=== PATIENT | male | born 1955 | race Caucasian/White ===

== ENCOUNTER 2017-09-17 07:28 | Day surgery (SDC) | payer MEDICARE ==
[~2017-09-17] VITALS: Ht 162.6 cm; Wt 92.1 kg
[2017-09-17] VITALS (10 sets, daily range): BP systolic 102–134; BP diastolic 67–89
--- OUTSIDE RECORDS SUMMARY | 2017-09-17 07:31 | XMS REPORT | Continuity of Care Document ---
Author Author [facility] Organization [facility] Address Unknown Phone Unavailable Allergies Active Description Code Type Severity Reaction Onset Reported/Identified Relationship to Patient Clinical Status Yes No Known Drug Allergies [id number] N/A N/A Medications There is no data. Problems There is no data. Procedures There is no data. Results Test Result Range TSH - 09/03/17 16:11 TSH 2.35 mIU/L 0.40-4.50 Encounters ACCT No. Visit Date/Time Discharge Status Pt. Type Provider Facility Loc./Unit Complaint [id number] 03/20/2014 12:06:48 03/20/2014 23:59:59 CLS Outpatient Flavia Tapia [id number] 06/07/2013 10:40:09 06/07/2013 23:59:59 CLS Outpatient Duong Rico [id number] 05/17/2013 12:14:27 05/17/2013 23:59:59 CLS Outpatient Duong Rico [id number] 05/16/2013 12:55:56 05/16/2013 23:59:59 CLS Outpatient Duong Rico [id number] 05/10/2013 11:59:47 05/10/2013 23:59:59 CLS Outpatient Duong Rico [id number] 05/01/2013 12:35:03 05/01/2013 23:59:59 CLS Outpatient Duong Rico [id number] 09/03/2017 15:20:00 09/03/2017 23:59:59 CLS Outpatient YOEL YUSUF LAC CHCTOBIAS LEI [id number] 09/03/2017 15:20:00 Document Registration [id number] 09/08/2017 10:08:00 09/08/2017 23:59:59 CLS Outpatient SONIA VARGAS APRN Via [facility] CARD DIZZINESS [id number] 09/06/2017 10:11:39 Document Registration
[2017-09-17] MEDS ORDERED: NS IV 1000 ML 1,000 ML ONE (07:44)
[2017-09-17] MEDS ORDERED: LIDOCAINE 1% INJ 20 ML 20 ML VIAL ONE (07:44)
[2017-09-17] MEDS ORDERED: methylPREDNISolone 125 MG (Solu-MEDROL) VIAL ONE (07:44)
[2017-09-17] MEDS ORDERED: HEParin (CATH LAB) 2,000 ML IV ONE (07:44)
[2017-09-17] MEDS ORDERED: NS IV 1000 ML 1,000 ML IV SCH ×2 (08:00→10:31)
[2017-09-17 08:12] LABS: HEMOGLOBIN 16.4 G/DL (13.3-17.7); MEAN PLATELET VOLUME 11.2 FL (7.4-10.4); RED BLOOD COUNT 5.24 10^6/uL (4.35-5.85); RED CELL DISTRIBUTION WIDTH 13.8 % (10.0-14.5); WHITE BLOOD COUNT 7.2 10^3/uL (4.3-11.0)
[2017-09-17] MEDS ORDERED: NAPR-1033 PO (08:20)
[2017-09-17] MEDS ORDERED: METO-351 PO (08:20)
[2017-09-17] MEDS ORDERED: ASPI-983 PO (08:20)
[2017-09-17] MEDS ORDERED: CETI10TA17 PO (08:20)
--- NOTE | 2017-09-17 08:23 | Diagnostic Imaging Report ---
INDICATION: Coronary artery disease PA chest obtained at 8:06 a.m. Heart and mediastinal silhouette are normal in appearance. The lungs are clear. There is no pneumothorax or pleural fluid. IMPRESSION: Negative chest. Dictated by: Dictated on workstation # [id number]
[2017-09-17 08:26] LABS: INR 1.1 (0.8-1.4); PROTHROMBIN TIME PATIENT 14.4 SEC (12.2-14.7)
[2017-09-17 08:34] LABS: ALANINE AMINOTRANSFERASE 39 U/L (0-55); ALBUMIN 4.3 GM/DL (3.2-4.5); ALKALINE PHOSPHATASE 75 U/L (40-136); BILIRUBIN,TOTAL 0.7 MG/DL (0.1-1.0); BUN/CREATININE RATIO 12; CALCIUM 9.2 MG/DL (8.5-10.1); CARBON DIOXIDE 21 MMOL/L (21-32); CHLORIDE 112 MMOL/L (98-107); CHOLESTEROL 150 MG/DL (< 200); CREATININE SERUM 1.02 MG/DL (0.60-1.30); GFR ESTIMATED > 60; GLUCOSE 92 MG/DL (70-105); HDL CHOLESTEROL 34 MG/DL (40-60); POTASSIUM 4.7 MMOL/L (3.6-5.0); SODIUM 142 MMOL/L (135-145); TOTAL PROTEIN 6.7 GM/DL (6.4-8.2); TRIGLYCERIDES 205 MG/DL (<150); VLDL CHOLESTEROL 41 MG/DL (5-40)
[2017-09-17] MEDS ORDERED: MIDAZOLAM 5 MG/5 ML (VERSED) VIAL ONE (09:45)
[2017-09-17] MEDS ORDERED: fentaNYL INJECTION 100 MCG/2 ML AMP ONE (09:46)
[2017-09-17] MEDS ORDERED: diphenhydrAMINE 50 MG/ML INJ (BENADRYL) ONE (09:47)
--- NOTE | 2017-09-17 10:08 | Cardiac Procedure Note-CS/ASA ---
Pre-Procedure Note Pre-Op Procedure Note H&P Reviewed The H&P was reviewed, patient examined and no changes noted. Date H&P Reviewed: Sep 17, 2017 Time H&P Reviewed: 10:07 Conscious Sedation Pre-Proced Time Reviewed: :07 ASA Class: 3 Airway Mallampati Classification: (grayling appropriate class) I. II. III, IV Lungs Heart ASA score ASA 1: a normal healthy patient ASA 2: a patient with a mild systemic disease (mid diabetes, controlled hypertension, obesity x ASA 3: a patient with a severe systemic disease that limits activity (angina , COPD, prior Myocardial infarction) ASA 4: a patient with an incapacitating disease that is a constant threat to life (CHF, renal failure) ASA 5: a moribund patient not expected to survive 24 hrs. (ruptured aneurysm) ASA 6: a declared brain patient whose organs are being harvested. For emergent operations, add the letter E after the classification Grade 3 Sedation Plan: Analgesia, Amnesia, Plan communicated to team members, Discussed options with patient/fam, Discussed risks with patient/fam Note The patient is an appropriate candidate to undergo the planned procedure, sedation, and anesthesia. The patient immediately re-assessed prior to indication. MARIE MOSELEY MD Sep 17, 2017 10:07
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
--- NOTE | 2017-09-17 10:35 | Cardiac Cath Report ---
Cardiac Cath Report Physician (s)/Telegraph Operator (s) Physician MARIE MOSELEY MD Pre-Procedure Diagnosis Pre-Procedure Diagnosis: Ventricular tachycardia, chest pain Post-Procedure Note Procedure Start Date: Sep 17, 2017 Name of Procedure: Left heart catheterization Findings/Procedure Note PROCEDURE NOTE: 62 years old gentleman with history of hypertension, recurrent palpitation, had a Holter monitor which showed multiple PVCs and APCs, 11 beats of nonsustained ventricular tachycardia, he was scheduled for left heart catheterization possible PTCA After explaining the procedure to the patient, all pros and cons were explained , all questions were answered. The patient signed the consent and then he was placed on the cardiac catheterization laboratory. Groin was prepped SL fashion local anesthesia was used. Sheath placed in the right femoral artery. [place] right and left catheter were used to access the coronary system. Pigtail was used to access the left ventricular cavity. Left ventriculogram was done At the end of the procedure the sheath was removed. Closure device was used FINDINGS: Hemodynamics LV 106/12, end-diastolic pressure of 12 Aorta 111/69 mean of 89 ANATOMY: Left Main is free of obstructive disease Left Anterior Descending has mild disease nonobstructive disease Left Circumflex is dominant artery with mild disease nonobstructive disease Ramus intermedius is small artery with no significant obstructive disease Right Coronory Artery is small nondominant artery LV Gram is normal in size with normal contractility, estimated ejection fraction 60 percent CONCLUSION: 1. Dominant circumflex artery with mild coronary artery disease nonobstructive disease 2. Normal left ventricular size and systolic function estimated ejection fraction 60 percent DISCUSSION AND RECOMMENDATION: I will arrange for LifeVest evaluation, medical therapy is recommended. Anesthesia Type: Conscious Sedation Estimated blood loss (mL): 10 ml Contrast Amount: 40 ml Total Radiation Dose: 195 mGy Post-Procedure Diagnosis Post-operative diagnosis: Palpitation Nonsustained ventricular tachycardia Hypertension Hyperlipidemia MARIE MOSELEY MD Sep 17, 2017 10:35
[2017-09-17] MEDS ORDERED: PATIENT MAY USE OWN MEDS, ALL PO SCH (10:45)
[2017-09-17] MEDS ORDERED: AMIO200T2 PO (11:15)
[2017-09-17] MEDS ORDERED: AMIODARONE 200 MG (CORDARONE) TAB PO SCH (11:15)
--- NOTE | 2017-09-17 11:16 | Discharge Inst-Post CATH ---
Discharge Inst-CATH Post Cardiac Cath D/C Inst Follow Up/Plan Appointment with Dr Pineda in 2-4 weeks CARDIAC CATH DISCHARGE INSTRUCTIONS *Hold Metformin for 48 hours post heart cath. ACTIVITY * Go Home directly and rest. * Limit activity of the leg (or wrist if it was used) for 7 days including aerobics, swimming, jogging, bicycling, etc. * Restrict stair-climbing for 7 days if possible, if not, climb up with your non -cath leg, then bring together on the same step. * Avoid lifting, pushing, pulling or excessive movement of the affected extremity for 7 days. * Customary sexual activity may be resumed after 2 days-use caution not to use a position that strains or causes pain to the affected extremity. * No driving for 24 hours. * NO SMOKING. * Avoid straining for bowel movements for 7 days. * Gentle walking on level ground is allowed. * Returning to work will depend on the type of procedure and the results. Your doctor will discuss this with you. CALL YOUR DOCTOR FOR ANY OF THE FOLLOWING: *If bleeding from the puncture site occurs- Apply gentle pressure to site with clean cloth and call your doctor or EMS. * If a knot or lump forms under the skin, increases in size, or causes pain. * If bruising appears to be worsening or moving further down your leg instead of disappearing. * Temperature above 101 F. CARE OF YOUR GROIN INCISION; * Bruising or purple discoloration of the skin near the puncture site is common. * You may shower only, no bathtub bathing for 5 days. Be careful to avoid slipping as your leg may feel stiff. * If a closure device was used on your femoral artery, please see the attached guide regarding care of the device and your leg. * REMOVE the dressing from your groin the next day after your procedure in the shower. CARE OF YOUR WRIST INCISION; * Bruising or purple discoloration of the skin near the puncture site is common. * You may shower. * DO NOT submerge wrist. * Remove dressing in 24 hours. MARIE PINEDA MD Sep 17, 2017 11:16
[2017-09-18] MEDS ORDERED: ASPIRIN E.C. 81 MG (ECOTRIN) TAB PO SCH (09:00)
[2017-09-18] MEDS ORDERED: LORATADINE (CLARITIN) 10 MG TAB PO SCH (09:00)
[2017-09-18] MEDS ORDERED: NON-FORMULARY MEDICATION 1 EA EA (Metoprolol Succinate (Toprol Xl) 25 MG) PO SCH (09:00)
[2017-09-18] MEDS ORDERED: NON-FORMULARY MEDICATION 1 EA EA (Cetirizine HCl 10 MG) PO SCH (09:00)
== END 2017-09-17 16:40 | disposition home or self-care (01) ==
LOC: CATH 07:28 → ICU 11:05 → CATH 16:40
PROVIDERS: ATTEND Internal Medicine Cardiovascular Disease
DX: I47.2 Ventricular tachycardia (principal); I10 Essential (primary) hypertension; E78.5 Hyperlipidemia, unspecified; R00.2 Palpitations; Z87.891 Personal history of nicotine dependence; R55 Syncope and collapse; K21.9 Gastro-esophageal reflux disease without esophagitis; Z82.49 Family history of ischemic heart disease and other diseases of the circulatory system
CPT/HCPCS: 36415; 71045; 80053; 80061; 85027; 85610; 85730; 87081; 93458

== ENCOUNTER 2017-10-14 07:34 | Outpatient (RCR) | payer MEDICARE ==
[~2017-10-14 07:34] MED LIST: AMIO200T4 PO; ASPI-983 PO; CETI10TA17 PO; METO-351 PO; NAPR-1033 PO
== END 2017-12-19 | disposition home or self-care (01) ==
LOC: CARD 07:34
PROVIDERS: ATTEND Internal Medicine Cardiovascular Disease
DX: I47.2 Ventricular tachycardia (principal); R55 Syncope and collapse; R42 Dizziness and giddiness; R07.89 Other chest pain; I08.0 Rheumatic disorders of both mitral and aortic valves
CPT/HCPCS: 93306

== ENCOUNTER 2017-11-25 08:03 | Day surgery (SDC) | payer MEDICARE ==
[~2017-11-25] VITALS: Ht 162.6 cm; Wt 92.1 kg
[2017-11-25] MEDS ORDERED: LIDOCAINE 1% INJ 20 ML 20 ML VIAL ONE (08:43)
[2017-11-25 08:53] VITALS: BP 140/79
[2017-11-25] MEDS ORDERED: REGADENOSON 0.4 MG/5 ML SYR (LEXISCAN) IV ONE (09:03)
--- OUTSIDE RECORDS SUMMARY | 2017-11-25 10:26 | XMS REPORT | Continuity of Care Document ---
Author Author [facility] Organization [facility] Address Unknown Phone Unavailable Allergies Active Description Code Type Severity Reaction Onset Reported/Identified Relationship to Patient Clinical Status Yes No Known Drug Allergies [id number] N/A N/A Yes CONTRAST CONTRAST Unknown N/A 09/17/2017 Medications There is no data. Problems Date Dx Coded Attending Type Code Diagnosis Diagnosed By 09/17/2017 SONIA VARGAS APRN Ot R42 DIZZINESS AND GIDDINESS 09/17/2017 MARIE MOSELEY MD Ot E78.5 HYPERLIPIDEMIA, UNSPECIFIED 09/17/2017 MARIE MOSELEY MD Ot I10 ESSENTIAL (PRIMARY) HYPERTENSION 09/17/2017 MARIE MOSELEY MD Ot I47.2 VENTRICULAR TACHYCARDIA 09/17/2017 MARIE MOSELEY MD Ot K21.9 GASTRO-ESOPHAGEAL REFLUX DISEASE WITHOUT 09/17/2017 MARIE MOSELEY MD Ot R00.2 PALPITATIONS 09/17/2017 MARIE MOSELEY MD Ot R55 SYNCOPE AND COLLAPSE 09/17/2017 MARIE MOSELEY MD Ot Z82.49 FAMILY HX OF ISCHEM HEART DIS AND OTH DI 09/17/2017 MARIE MOSELEY MD Ot Z87.891 PERSONAL HISTORY OF NICOTINE DEPENDENCE 09/20/2017 MARIE MOSELEY MD Ot E78.5 HYPERLIPIDEMIA, UNSPECIFIED 09/20/2017 MARIE MOSELEY MD Ot I10 ESSENTIAL (PRIMARY) HYPERTENSION 09/20/2017 MARIE MOSELEY MD Ot I47.2 VENTRICULAR TACHYCARDIA 09/20/2017 MARIE MOSELEY MD Ot K21.9 GASTRO-ESOPHAGEAL REFLUX DISEASE WITHOUT 09/20/2017 MARIE MOSELEY MD Ot R00.2 PALPITATIONS 09/20/2017 MARIE MOSELEY MD Ot R55 SYNCOPE AND COLLAPSE 09/20/2017 MARIE MOSELEY MD Ot Z82.49 FAMILY HX OF ISCHEM HEART DIS AND OTH DI 09/20/2017 MARIE MOSELEY MD Ot Z87.891 PERSONAL HISTORY OF NICOTINE DEPENDENCE 09/29/2017 SAMSONIA Betzaida HUFF Ot R42 DIZZINESS AND GIDDINESS 11/08/2017 MARIE MOSELEY MD, 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 11/08/2017 MARIE MOSELEY MD, Ot I47.2 VENTRICULAR TACHYCARDIA 11/08/2017 MARIE MOSELEY MD, Ot R07.89 OTHER CHEST PAIN 11/08/2017 MARIE MOSELEY MD, Ot R42 DIZZINESS AND GIDDINESS 11/08/2017 MARIE MOSELEY MD, Ot R55 SYNCOPE AND COLLAPSE Procedures There is no data. Results Test Result Range TSH - 09/03/17 16:11 TSH 2.35 mIU/L 0.40-4.50 Automated blood complete blood count (hemogram) panel - 09/17/17 08:05 Blood leukocytes automated count (number/volume) 7.2 10*3/uL 4.3-11.0 Blood erythrocytes automated count (number/volume) 5.24 10*6/uL 4.35-5.85 Venous blood hemoglobin measurement (mass/volume) 16.4 g/dL 13.3-17.7 Blood hematocrit (volume fraction) 47 % 40-54 Automated erythrocyte mean corpuscular volume 90 [foz_us] 80-99 Automated erythrocyte mean corpuscular hemoglobin (mass per erythrocyte) 31 pg 25-34 Automated erythrocyte mean corpuscular hemoglobin concentration measurement ( mass/volume) 35 g/dL 32-36 Automated erythrocyte distribution width ratio 13.8 % 10.0-14.5 Automated blood platelet count (count/volume) 191 10*3/uL 130-400 Automated blood platelet mean volume measurement 11.2 [foz_us] 7.4-10.4 PT panel in platelet poor plasma by coagulation assay - 09/17/17 08:05 Prothrombin time (PT) in platelet poor plasma by coagulation assay 14.4 s 12.2-14.7 INR in platelet poor plasma or blood by coagulation assay 1.1 0.8-1.4 Activated partial thromboplastin time (aPTT) in platelet poor plasma bycoagulation assay - 09/17/17 08:05 Activated partial thromboplastin time (aPTT) in platelet poor plasma bycoagulation assay 31 s 24-35 Comprehensive metabolic panel - 09/17/17 08:05 Serum or plasma sodium measurement (moles/volume) 142 mmol/L 135-145 Serum or plasma potassium measurement (moles/volume) 4.7 mmol/L 3.6-5.0 Serum or plasma chloride measurement (moles/volume) 112 mmol/L 98-107 Carbon dioxide 21 mmol/L 21-32 Serum or plasma anion gap determination (moles/volume) 9 mmol/L 5-14 Serum or plasma urea nitrogen measurement (mass/volume) 12 mg/dL 7-18 Serum or plasma creatinine measurement (mass/volume) 1.02 mg/dL 0.60-1.30 Serum or plasma urea nitrogen/creatinine mass ratio 12 NRG Serum or plasma creatinine measurement with calculation of estimated glomerular filtration rate > NRG Serum or plasma glucose measurement (mass/volume) 92 mg/dL 70-105 Serum or plasma calcium measurement (mass/volume) 9.2 mg/dL 8.5-10.1 Serum or plasma total bilirubin measurement (mass/volume) 0.7 mg/dL 0.1-1.0 Serum or plasma alkaline phosphatase measurement (enzymatic activity/volume) 75 U/L 40-136 Serum or plasma aspartate aminotransferase measurement (enzymatic activity/ volume) 33 U/L 5-34 Serum or plasma alanine aminotransferase measurement (enzymatic activity/volume ) 39 U/L 0-55 Serum or plasma protein measurement (mass/volume) 6.7 g/dL 6.4-8.2 Serum or plasma albumin measurement (mass/volume) 4.3 g/dL 3.2-4.5 Lipid 1996 panel - 09/17/17 08:05 Serum or plasma triglyceride measurement (mass/volume) 205 mg/dL <150 Serum or plasma cholesterol measurement (mass/volume) 150 mg/dL < 200 Serum or plasma cholesterol in HDL measurement (mass/volume) 34 mg/ dL 40-60 Cholesterol in LDL [mass/volume] in serum or plasma by direct assay 94 mg/dL 1-129 Serum or plasma cholesterol in VLDL measurement (mass/volume) 41 mg/ dL 5-40 Methicillin resistant Staphylococcus aureus (MRSA) screening culture - 08:05 Methicillin resistant Staphylococcus aureus (MRSA) screening culture NEG NRG Encounters ACCT No. Visit Date/Time Discharge Status Pt. Type Provider Facility Loc./Unit Complaint [id number] 03/20/2014 12:06:48 03/20/2014 23:59:59 CLS Outpatient Flavia Tapia [id number] 06/07/2013 10:40:09 06/07/2013 23:59:59 CLS Outpatient Duong Rico [id number] 05/17/2013 12:14:27 05/17/2013 23:59:59 CLS Outpatient [place], Duong [id number] 05/16/2013 12:55:56 05/16/2013 23:59:59 CLS Outpatient Duong Rico [id number] 05/10/2013 11:59:47 05/10/2013 23:59:59 CLS Outpatient [place], Duong [id number] 05/01/2013 12:35:03 05/01/2013 23:59:59 CLS Outpatient Duong Rico [id number] 09/14/2017 09:00:00 09/14/2017 23:59:59 CLS Outpatient SONIA VARGAS [id number] 09/03/2017 15:20:00 Document Registration [id number] 11/15/2017 10:49:00 11/15/2017 23:59:59 CLS Preadmit Sandy VENEGAS MD Via [facility] RT NEAR SYNCOPE,VENTRICULAR TACHYCARDIA [id number] 10/14/2017 07:34:00 10/14/2017 23:59:59 CLS Outpatient MARIE MOSELEY MD [facility] CARD SYNCOPE [id number] 09/17/2017 07:28:00 09/17/2017 16:40:00 DIS Outpatient MARIE MOSELEY MD [facility] CATH VTACH,CP,SYNOPE, DIZZINESS,HTN [id number] 09/08/2017 10:08:00 09/08/2017 23:59:59 CLS Outpatient SONIA VARGAS APRN [facility] CARD DIZZINESS [id number] 09/06/2017 10:11:39 Document Registration
--- OUTSIDE RECORDS SUMMARY | 2017-11-25 10:26 | XMS REPORT ---
Author Author ROWENA DUMAS [facility] Address [address] [place] [address] Care Team Providers Care Maternal Child Nurse Name Role Phone ROWENA DUMAS Unavailable PROBLEMS Type Condition ICD9-CM Code [id number] Code Onset Dates Condition Status SNOMED Code Problem Essential hypertension I10 Active 42652984 Problem Gastroesophageal reflux disease, esophagitis presence not specified K21.9 Active 518000439 Problem Syncope, unspecified syncope type R55 Active 948771428 Problem Ventricular tachycardia, non-sustained I47.2 Active 842556868 ALLERGIES No Known Allergies ENCOUNTERS Encounter Location Date Diagnosis [facility] [employer] [address] [id number] [place] [address] August [facility] [address] [id number] [place] [address] August Essential hypertension I10 ; Dizziness R42 ; Abnormal Holter monitor finding R94.31 and Gastroesophageal reflux disease, esophagitis presence not specified K21.[address] [id number] [place] [address] August Dizziness R42 [facility] [address] [id number] [place] [address] August [place] [address] [id number] [place] [address] August Dizziness R42 [place] [address] [id number] [place] [address] May Exposure to influenza Z20.828 [place] [address] [id number] [place] [address] Oct Angioedema, initial encounter T78.3XXA IMMUNIZATIONS No Known Immunizations SOCIAL HISTORY Never Assessed REASON FOR VISIT flu symptoms, Pt has a dry cough, weak, chest congestion. , Pt was exposed to influenza. ZEENAT Campuzano PLAN OF CARE Activity Details Follow Up prn Reason: VITAL SIGNS Height 63.5 in 2017-05-27 Weight 198.8 lbs 2017-05-27 Temperature 98.7 degrees Fahrenheit 2017-05-27 Heart Rate 90 bpm 2017-05-27 Respiratory Rate 20 2017-05-27 Oximetry 96 % 2017-05-27 BMI 34.66 kg/m2 2017-05-27 Blood pressure systolic 138 mmHg 2017-05-27 Blood pressure diastolic 86 mmHg 2017-05-27 MEDICATIONS Medication Instructions Dosage Frequency Start Date End Date Duration Status Tamiflu 75 MG Orally Twice a day 1 capsule 12h 08 May, 2017 5 day(s) Active Kendrick 10-325 MG Orally PRN 1 tablet Active RESULTS Name Result Date Reference Range INFLUENZA A & B (IN HOUSE) 2017-05-27 INFLUENZA A negative INFLUENZA B negative Control + Lot # [id number] Exp date 08/2019 PROCEDURES Procedure Date Ordered Result Body Site MEASURE BLOOD OXYGEN LEVEL May 27, 2017 INFLUENZA ASSAY W/OPTIC May 27, 2017 INSTRUCTIONS MEDICATIONS ADMINISTERED No Known Medications MEDICAL (GENERAL) HISTORY Type Description Date Medical History Arthritis Surgical History Lt knee surgery Surgical History hernia repair X 2
[2017-11-25 11:00] VITALS: BP 140/79
--- NOTE | 2017-11-25 12:23 | Implantation of Loop Monitor ---
Implant of Loop Monitior PROCEDURE PHYSICIAN: Nelli Lock MD IMPLANTATION OF LOOP MONITOR REPORT DATE OF PROCEDURE: 11/25/17 ATTENDING PHYSICIAN: Dr. Matt Lock. PERFORMING PHYSICIAN: Dr. Matt Lock. INDICATION: Syncope, nonsustained VT. PREOP DIAGNOSIS: Syncope, nonsustained VT. POSTOP DIAGNOSIS: Syncope, nonsustained VT, s/p implantation of loop recorder. PROCEDURE DETAILS: The patient is a 62 male with history of paroxysmal atrial fibrillation requiring long-term surveillance. Therefore implantable loop recorder was discussed and agreed with the patient. Informed consent was taken. All risks and complications were discussed at length. The patient was draped and prepped in the usual sterile fashion. Local anesthesia was lidocaine, which was given in the substernal area close to the 4th intercostal space. Med[employer]onic Loop monitor was implanted according to the protocol. Steri-Strips were placed at the end of the procedure. There were no complications and the patient tolerated the procedure well. ANESTHESIA: Local anesthesia with lidocaine. COMPLICATIONS: None CONTRAST/FLUOROSCOPY: None CONCLUSION: 1. Successful implantation of loop monitor for recurrent syncope. 2. No complication and the patient tolerated the procedure well. Nelli Lock MD, [facility], CCDS Cardiac Electrophysiology Sandy LOCK MD Nov 25, 2017 12:23 pm
== END 2017-11-25 11:39 | disposition home or self-care (01) ==
LOC: CATH 08:03
PROVIDERS: ATTEND Internal Medicine Interventional Cardiology
DX: R55 Syncope and collapse (principal); I47.1 Supraventricular tachycardia; I10 Essential (primary) hypertension; I08.0 Rheumatic disorders of both mitral and aortic valves; Z87.891 Personal history of nicotine dependence; Z79.82 Long term (current) use of aspirin
CPT/HCPCS: 33282

== ENCOUNTER → 2018-01-03 | Outpatient (CLI) | payer MEDICARE | LOC: RT 14:28 | PROVIDERS: ATTEND Internal Medicine Interventional Cardiology | DX: R55 Syncope and collapse (principal); I47.2 Ventricular tachycardia ==

== ENCOUNTER 2018-02-26 19:06 | Emergency (ER) | payer MEDICARE ==
[~2018-02-26] VITALS: Ht 162.6 cm; Wt 92.1 kg
--- OUTSIDE RECORDS SUMMARY | 2018-02-26 19:11 | XMS REPORT ---
Author Author SONIA VARGAS [facility] Address [address] [place] [address] Care Team Providers Care Signals Collection Technician Name Role Phone SONIA VARGAS Unavailable PROBLEMS Type Condition ICD9-CM Code [id number] Code Onset Dates Condition Status SNOMED Code Problem Essential hypertension I10 Active 65454437 Problem Gastroesophageal reflux disease, esophagitis presence not specified K21.9 Active 884727192 Problem Syncope, unspecified syncope type R55 Active 282259585 Problem Ventricular tachycardia, non-sustained I47.2 Active 002279619 ALLERGIES No Known Allergies ENCOUNTERS Encounter Location Date Diagnosis [facility] [address] [id number] [place] [address] Nov Strain of lumbar paraspinous muscle, initial encounter S39.012A and History of ventricular tachycardia Z86.79 [facility], IncLE[facility] [address] [id number] [place] [address] Nov Essential hypertension I10 and Ventricular tachycardia, non-sustained I47.2 [facility] [address] [id number] [place] [address] August [facility], [place]LE[place] [address] [id number] [place] [address] August Essential hypertension I10 ; Dizziness R42 ; Abnormal Holter monitor finding R94.31 and Gastroesophageal reflux disease, esophagitis presence not specified K21.9 [facility] [address] [id number] [place] [address] August Dizziness R42 [facility]UCAHVilant SystemsONS [address] [id number] [place] [address] August [facility], IncLEI [address] [id number] [place] [address] August Dizziness R42 [facility]UCAHThe [facility] [address] [id number] [place] [address] 08 May Exposure to influenza Z20.828 [facility] [address] [id number] [place] [address] 10 Oct Angioedema, initial encounter T78.3XXA IMMUNIZATIONS No Known Immunizations SOCIAL HISTORY Never Assessed REASON FOR VISIT Fainting, increasing in frequency. NATHANAEL santizo PLAN OF CARE Activity Details Follow Up prn Reason:Establish VITAL SIGNS Height 63.5 in 2017-09-03 Weight 202.9 lbs 2017-09-03 Temperature 98.4 degrees Fahrenheit 2017-09-03 Heart Rate 93 bpm 2017-09-03 Respiratory Rate 18 2017-09-03 Oximetry 96 % 2017-09-03 BMI 35.37 kg/m2 2017-09-03 Blood pressure systolic 165 mmHg 2017-09-03 Blood pressure diastolic 88 mmHg 2017-09-03 MEDICATIONS Medication Instructions Dosage Frequency Start Date End Date Duration Status Aleve 220 MG Orally every 12 hrs 1 tablet with food or milk as needed 12h Active Champion 10-325 MG Orally PRN 1 tablet Active ZyrTEC Active RESULTS No Results PROCEDURES Procedure Date Ordered Result Body Site HOLTER MONITOR (OUTPATIENT) 2017-09-03 Abnormal LAB NOT BILLED BY [facility] September 03, 2017 [facility] VISIT ESTABLISHED PATIENT September 03, 2017 SELWYN ALEMAN* September 03, 2017 INSTRUCTIONS MEDICATIONS ADMINISTERED No Known Medications MEDICAL (GENERAL) HISTORY Type Description Date Medical History Arthritis Surgical History Lt knee surgery Surgical History hernia repair X 2
--- OUTSIDE RECORDS SUMMARY | 2018-02-26 19:11 | XMS REPORT ---
Author Author SONIA VARGAS Organization [facility]logger[facility]LE[facility] Address [address] [place] [address] Care Team Providers Care School Bus Mechanic Name Role Phone SONIA VARGAS Unavailable PROBLEMS Type Condition ICD9-CM Code [id number] Code Onset Dates Condition Status SNOMED Code Problem Essential hypertension I10 Active 25141935 Problem Gastroesophageal reflux disease, esophagitis presence not specified K21.9 Active 171053981 Problem Syncope, unspecified syncope type R55 Active 990371971 Problem Ventricular tachycardia, non-sustained I47.2 Active 651019768 ALLERGIES No Information ENCOUNTERS Encounter Location Date Diagnosis [facility] [address] [id number] [place] [address] Nov Strain of lumbar paraspinous muscle, initial encounter S39.012A and History of ventricular tachycardia Z86.79 [facility]ITALBloggerceLE[facility] [address] [id number] [place] [address] Nov Essential hypertension I10 and Ventricular tachycardia, non-sustained I47.2 [facility] [address] [id number] [place] [address] August [facility]PITALBloggerceLEIJON [facility]IL[facility] [address] [id number] [place] [address] August Essential hypertension I10 ; Dizziness R42 ; Abnormal Holter monitor finding R94.31 and Gastroesophageal reflux disease, esophagitis presence not specified K21.9 [facility]ITALBloggerceLE[facility] [address] [id number] [place] [address] August Dizziness R42 [facility]ENCEMetaIntellONS [address] [id number] [place] [address] August [facility] [address] [id number] [place] [address] August Dizziness R42 [facility]ENCEV[facility] [address] [id number] [place] [address] May Exposure to influenza Z20.828 [facility] [address] [id number] [place] [address] Oct Angioedema, initial encounter T78.3XXA IMMUNIZATIONS No Known Immunizations SOCIAL HISTORY Never Assessed REASON FOR VISIT Lab (walk-in) NATHANAEL santizo PLAN OF CARE VITAL SIGNS MEDICATIONS No Known Medications RESULTS Name Result Date Reference Range TSH 2017-11-18 TSH 4.17 0.40-4.50 PROCEDURES Procedure Date Ordered Result Body Site VENIPUNCT, ROUTINE* Nov 18, 2017 LAB NOT BILLED BY [facility] Nov 18, 2017 INSTRUCTIONS MEDICATIONS ADMINISTERED No Known Medications MEDICAL (GENERAL) HISTORY Type Description Date Medical History Arthritis Surgical History Lt knee surgery Surgical History hernia repair X 2
--- OUTSIDE RECORDS SUMMARY | 2018-02-26 19:11 | XMS REPORT | Continuity of Care Document ---
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 11/08/2017 MARIE MOSELEY MD Ot I47.2 VENTRICULAR TACHYCARDIA 11/08/2017 MARIE MOSELEY MD Ot R07.89 OTHER CHEST PAIN 11/08/2017 MARIE MOSELEY MD Ot R42 DIZZINESS AND GIDDINESS 11/08/2017 MARIE MOSELEY MD Ot R55 SYNCOPE AND COLLAPSE 11/25/2017 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 11/25/2017 Ot I10 ESSENTIAL ( PRIMARY) HYPERTENSION 11/25/2017 Ot I47.1 SUPRAVENTRICULAR TACHYCARDIA 11/25/2017 Ot R55 SYNCOPE AND COLLAPSE 11/25/2017 Ot Z79.82 HALF-WAY ( CURRENT) USE OF ASPIRIN 11/25/2017 Ot Z87.891 PERSONAL HISTORY OF NICOTINE DEPENDENCE 12/07/2017 SONIA VARGAS APRN Ot R42 DIZZINESS AND GIDDINESS 12/19/2017 MARIE MOSELEY MD 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 12/19/2017 MARIE MOSELEY MD Ot I47.2 VENTRICULAR TACHYCARDIA 12/19/2017 MARIE MOSELEY MD Ot R07.89 OTHER CHEST PAIN 12/19/2017 MARIE MOSELEY MD Ot R42 DIZZINESS AND GIDDINESS 12/19/2017 MARIE MOSELEY MD Ot R55 SYNCOPE AND COLLAPSE 12/22/2017 MARIE MOSELEY MD 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 12/22/2017 MARIE MOSELEY MD Ot I47.2 VENTRICULAR TACHYCARDIA 12/22/2017 MARIE MOSELEY MD Ot R07.89 OTHER CHEST PAIN 12/22/2017 MARIE MOSELEY MD Ot R42 DIZZINESS AND GIDDINESS 12/22/2017 MARIE MOSELEY MD Ot R55 SYNCOPE AND COLLAPSE 01/05/2018 Sandy VENEGAS MD Ot I47.2 VENTRICULAR TACHYCARDIA 01/05/2018 Sandy VENEGAS MD Ot R55 SYNCOPE AND COLLAPSE 01/05/2018 Snady VENEGAS MD Ot I47.2 VENTRICULAR TACHYCARDIA 01/05/2018 Sandy VENEGAS MD Ot R55 SYNCOPE AND COLLAPSE Procedures There [...] Staphylococcus aureus (MRSA) screening culture NEG NRG TSH - 11/18/17 11:11 TSH 4.17 mIU/L 0.40-4.50 Encounters ACCT No. Visit Date/Time Discharge Status Pt. Type Provider Facility Loc./Unit Complaint [id number] 03/20/2014 12:06:48 03/20/2014 23:59:59 CLS Outpatient Flavia Tapia [id number] 06/07/2013 10:40:09 06/07/2013 23:59:59 CLS Outpatient Duong Rico [id number] 05/17/2013 12:14:27 05/17/2013 23:59:59 CLS Outpatient Duong Rico [id number] 05/16/2013 12:55:56 05/16/2013 23:59:59 CLS Outpatient Duong Rico [id number] 05/10/2013 11:59:47 05/10/2013 23:59:59 CLS Outpatient Duong Rico [id number] 05/01/2013 12:35:03 05/01/2013 23:59:59 CLS Outpatient Duong Rico [id number] 11/18/2017 11:20:00 11/18/2017 23:59:59 CLS Outpatient SONIA VARGAS [place] [id number] 11/18/2017 11:20:00 Document Registration [id number] 09/03/2017 15:20:00 Document Registration [id number] 01/03/2018 14:28:00 01/03/2018 23:59:59 CLS Outpatient Sandy VENEGAS MD [facility] RT NEAR SYNCOPE,VENTRICULAR TACHYCARDIA [id number] 12/20/2017 09:00:00 12/20/2017 23:59:59 CLS Preadmit MARIE MOSELEY MD [facility] CARD SYNCOPE [id number] 10/14/2017 07:34:00 12/19/2017 00:01:00 DIS Outpatient MARIE MOSELEY MD [facility] CARD SYNCOPE [id number] 12/08/2017 11:30:00 12/08/2017 23:59:59 CLS Preadmit SONIA VARGAS APRN [facility] CARD DIZZINESS [id number] 09/08/2017 10:08:00 12/07/2017 00:01:00 DIS Outpatient SONIA VARGAS APRN [facility] CARD DIZZINESS [id number] 11/15/2017 10:49:00 11/15/2017 23:59:59 CLS Preadmit Sandy VENEGAS MD [facility] RT NEAR SYNCOPE,VENTRICULAR TACHYCARDIA [id number] 09/17/2017 07:28:00 09/17/2017 16:40:00 DIS Outpatient MARIE MOSELEY MD [facility] CATH VTACH,CP,SYNOPE, DIZZINESS,HTN [id number] 02/26/2018 19:07:00 ACT Emergency WAYLON STEEL DO [facility] ER DIZZINESS [id number] 11/25/2017 08:03:00 Document Registration [id number] 09/06/2017 10:11:39 Document Registration
--- OUTSIDE RECORDS SUMMARY | 2018-02-26 19:11 | XMS REPORT ---
Author Author SONIA VARGAS Organization [facility]ITALSpark DiagnosticsLEI Address [address] [place] [address] Care Team Providers Care Mixing Machine Feeder Name Role Phone SONIA VARGAS Unavailable PROBLEMS Type Condition ICD9-CM Code RDB57-SY Code Onset Dates Condition Status SNOMED Code Problem Essential hypertension I10 Active 81240319 Problem Gastroesophageal reflux disease, esophagitis presence not specified K21.9 Active 933281793 Problem Syncope, unspecified syncope type R55 Active 763776510 Problem Ventricular tachycardia, non-sustained I47.2 Active 939893822 ALLERGIES No Information ENCOUNTERS Encounter Location Date Diagnosis [facility]Con[facility] [address] [id number] [place] [address] Nov Strain of lumbar paraspinous muscle, initial encounter S39.012A and History of ventricular tachycardia Z86.79 [facility]ITALSpark DiagnosticsLEI [address] [id number] [place] [address] Nov Essential hypertension I10 and Ventricular tachycardia, non-sustained I47.2 [facility]ITALSpark DiagnosticsLEI [address] [id number] [place] [address] August [facility]ITALSpark DiagnosticsLEIBENJAMIN [place] [address] [id number] [place] [address] August Essential hypertension I10 ; Dizziness R42 ; Abnormal Holter monitor finding R94.31 and Gastroesophageal reflux disease, esophagitis presence not specified K21.9 [facility]ITALSpark DiagnosticsLEI [address] [id number] [place] [address] August Dizziness R42 [facility]ITALBlue Mammoth GamesONS [address] [id number] [place] [address] August [facility] HOSPITALSpark DiagnosticsLEI [address] [id number] [place] [address] August Dizziness R42 [facility]ITALDigital [facility] [address] [id number] [place] [address] May Exposure to influenza Z20.828 [facility] [place] [address] [id number] [place] [address] Oct Angioedema, initial encounter T78.3XXA IMMUNIZATIONS No Known Immunizations SOCIAL HISTORY Never Assessed REASON FOR VISIT PLAN OF CARE VITAL SIGNS MEDICATIONS No Known Medications RESULTS No Results PROCEDURES Procedure Date Ordered Result Body Site EKG, TRACING (IN-HOUSE) 2017-09-10 Normal ELECTROCARDIOGRAM, TRACING September 10, 2017 INSTRUCTIONS MEDICATIONS ADMINISTERED No Known Medications MEDICAL (GENERAL) HISTORY Type Description Date Medical History Arthritis Surgical History Lt knee surgery Surgical History hernia repair X 2
--- OUTSIDE RECORDS SUMMARY | 2018-02-26 19:11 | XMS REPORT ---
Author Author SONIA VARGAS [facility] [place] Address [address] [place] [address] Care Team Providers Care Midlevel Provider Name Role Phone SONIA VARGAS Unavailable PROBLEMS Type Condition ICD9-CM Code IKN54-UP Code Onset Dates Condition Status SNOMED Code Problem Essential hypertension I10 Active 82340566 Problem Gastroesophageal reflux disease, esophagitis presence not specified K21.9 Active 727634977 Problem Syncope, unspecified syncope type R55 Active 552730743 Problem Ventricular tachycardia, non-sustained I47.2 Active 047455668 ALLERGIES Substance Reaction Event Type Date Status contrast dye vomitting Non Drug Allergy Nov, Active ENCOUNTERS Encounter Location Date Diagnosis [facility] [address] [id number] [place] [address] Nov Strain of lumbar paraspinous muscle, initial encounter S39.012A and History of ventricular tachycardia Z86.79 [facility] [place] [address] [id number] [place] [address] Nov Essential hypertension I10 and Ventricular tachycardia, non-sustained I47.2 [facility] [place] [facility] [address] [id number] [place] [address] August [facility] [place] [facility] [address] [id number] [place] [address] August Essential hypertension I10 ; Dizziness R42 ; Abnormal Holter monitor finding R94.31 and Gastroesophageal reflux disease, esophagitis presence not specified K21.9 [facility]son[facility] [address] [id number] [place] [address] August Dizziness R42 [facility]ITALsonesLE[facility] [employer] [address] [id number] [place] [address] August [facility] COMMERCLance [id number] [place] [address] August Dizziness R42 [facility] [place] [id number] [place] [address] May Exposure to influenza Z20.828 [facility]PITALJackelin EM[place] [id number] [place] [address] Oct Angioedema, initial encounter T78.3XXA IMMUNIZATIONS No Known Immunizations SOCIAL HISTORY Never Assessed REASON FOR VISIT C/o lower back pain , ongoing 24 hours , Pt states that he was putting a box in the car and bent over. , current pain level 12/27. , Pt states that he took some tylenol last night and not effective, pt states that he took 200mg Aleve this morning. SJ, RMA PLAN OF CARE Activity Details Follow Up prn Reason: VITAL SIGNS Height 63.5 in 2017-11-26 Weight 205 lbs 2017-11-26 Temperature 98.4 degrees Fahrenheit 2017-11-26 Heart Rate 74 bpm 2017-11-26 Respiratory Rate 18 2017-11-26 Oximetry 98 % 2017-11-26 BMI 35.74 kg/m2 2017-11-26 Blood pressure systolic 140 mmHg 2017-11-26 Blood pressure diastolic 86 mmHg 2017-11-26 MEDICATIONS Medication Instructions Dosage Frequency Start Date End Date Duration Status Cyclobenzaprine HCl 10 mg Orally Three times a day 1 tablet as needed 8h Nov, Nov, 10 days Active Lisinopril 10 mg Orally Once a day 1 tablet 24h August, 30 day(s) Active Pepcid AC 10 mg Orally Twice a day 1 tablet as needed 12h August, Active Naproxen 500 mg Orally every 12 hrs 1 tablet with food or milk as needed 12h Nov, Nov, 10 days Active Aleve 220 MG Orally every 12 hrs 1 tablet with food or milk as needed 12h Active ZyrTEC Active RESULTS No Results PROCEDURES Procedure Date Ordered Result Body Site [facility] VISIT ESTABLISHED PATIENT Nov 26, 2017 INSTRUCTIONS MEDICATIONS ADMINISTERED No Known Medications MEDICAL (GENERAL) HISTORY Type Description Date Medical History Arthritis Surgical History Lt knee surgery Surgical History hernia repair X 2
--- OUTSIDE RECORDS SUMMARY | 2018-02-26 19:11 | XMS REPORT ---
Author Author SONIA VARGAS [facility] [place] Address [address] [place] [address] Care Team Providers Care Interior Design Program Chair Name Role Phone SONIA VARGAS Unavailable PROBLEMS Type Condition ICD9-CM Code [id number] Code Onset Dates Condition Status SNOMED Code Problem Essential hypertension I10 Active 70510821 Problem Gastroesophageal reflux disease, esophagitis presence not specified K21.9 Active 469502040 Problem Syncope, unspecified syncope type R55 Active 654072955 Problem Ventricular tachycardia, non-sustained I47.2 Active 885546306 ALLERGIES Substance Reaction Event Type Date Status contrast dye vomitting Non Drug Allergy August, Active ENCOUNTERS Encounter Location Date Diagnosis [facility] [address] [id number] [place] [address] Nov Strain of lumbar paraspinous muscle, initial encounter S39.012A and History of ventricular tachycardia Z86.79 [facility] [place] [address] [id number] [place] [address] Nov Essential hypertension I10 and Ventricular tachycardia, non-sustained I47.2 [facility] [place] [facility] [address] [id number] [place] [address] August [facility] [place] [facility] [address] [id number] [place] [address] August Essential hypertension I10 ; Dizziness R42 ; Abnormal Holter monitor finding R94.31 and Gastroesophageal reflux disease, esophagitis presence not specified K21.9 [facility] [address] [id number] [place] [address] August Dizziness R42 [facility] [employer] [address] [id number] [place] [address] August [facility] [id number] [place] [address] August Dizziness R42 [facility] [place] [address] [id number] [place] [address] May Exposure to influenza Z20.828 [facility] [place] [id number] [place] [address] Oct Angioedema, initial encounter T78.3XXA IMMUNIZATIONS No Known Immunizations SOCIAL HISTORY Never Assessed REASON FOR VISIT Establish Care. NATHANAEL santizo PLAN OF CARE Activity Details Follow Up prn, pending cardiology consult Reason: VITAL SIGNS Height 63.5 in 2017-09-14 Weight 203.3 lbs 2017-09-14 Temperature 98.0 degrees Fahrenheit 2017-09-14 Heart Rate 93 bpm 2017-09-14 Respiratory Rate 18 2017-09-14 Oximetry 96 % 2017-09-14 BMI 35.44 kg/m2 2017-09-14 Blood pressure systolic 145 mmHg 2017-09-14 Blood pressure diastolic 85 mmHg 2017-09-14 MEDICATIONS Medication Instructions Dosage Frequency Start Date End Date Duration Status ZyrTEC Active Aleve 220 MG Orally every 12 hrs 1 tablet with food or milk as needed 12h Active Lisinopril 10 mg Orally Once a day 1 tablet 24h August, 30 day(s) Active Pepcid AC 10 mg Orally Twice a day 1 tablet as needed 12h August, Active RESULTS No Results PROCEDURES Procedure Date Ordered Result Body Site [facility]IS[facility] ESTABLISHED PATIENT September 14, 2017 INSTRUCTIONS MEDICATIONS ADMINISTERED No Known Medications MEDICAL (GENERAL) HISTORY Type Description Date Medical History Arthritis Surgical History Lt knee surgery Surgical History hernia repair X 2
--- OUTSIDE RECORDS SUMMARY | 2018-02-26 19:11 | XMS REPORT ---
Author Author SONIA VARGAS Organization [facility] Address [address] [place] [address] Care Team Providers Care Pathology Lab Technician Name Role Phone SONIA VARGAS Unavailable PROBLEMS Type Condition ICD9-CM Code NVB71-YR Code Onset Dates Condition Status SNOMED Code Problem Essential hypertension I10 Active 37221178 Problem Gastroesophageal reflux disease, esophagitis presence not specified K21.9 Active 978186848 Problem Syncope, unspecified syncope type R55 Active 277966882 Problem Ventricular tachycardia, non-sustained I47.2 Active 149064378 ALLERGIES No Information ENCOUNTERS Encounter Location Date Diagnosis [facility] [place] [address] [id number] [place] [address] Nov Strain of lumbar paraspinous muscle, initial encounter S39.012A and History of ventricular tachycardia Z86.79 [facility] Hub[facility] [address] [id number] [place] [address] Nov Essential hypertension I10 and Ventricular tachycardia, non-sustained I47.2 [facility] [address] [id number] [place] [address] August [facility]Coll[facility] HubLEIMATTHEW [place] [address] [id number] [place] [address] August Essential hypertension I10 ; Dizziness R42 ; Abnormal Holter monitor finding R94.31 and Gastroesophageal reflux disease, esophagitis presence not specified K21.9 [facility]ENTER[facility] Hub[facility] [address] [id number] [place] [address] August Dizziness R42 [facility]ITALAisleBuyerONS [address] [id number] [place] [address] August [facility] [address] [id number] [place] [address] August Dizziness R42 [facility]ITALTel[facility] [address] [id number] [place] [address] May Exposure to influenza Z20.828 [facility] [address] [id number] [place] [address] Oct Angioedema, initial encounter T78.3XXA IMMUNIZATIONS No Known Immunizations SOCIAL HISTORY Never Assessed REASON FOR VISIT Test results PLAN OF CARE VITAL SIGNS MEDICATIONS No Known Medications RESULTS No Results PROCEDURES No Known procedures INSTRUCTIONS MEDICATIONS ADMINISTERED No Known Medications MEDICAL (GENERAL) HISTORY Type Description Date Medical History Arthritis Surgical History Lt knee surgery Surgical History hernia repair X 2
--- OUTSIDE RECORDS SUMMARY | 2018-02-26 19:11 | XMS REPORT ---
Author Author SONIA VARGAS Organization [facility] ImagingLEI Address [address] [place] [address] Care Team Providers Care Sterile Products Processor Name Role Phone SONIA VARGAS Unavailable PROBLEMS Type Condition ICD9-CM Code SQH12-NM Code Onset Dates Condition Status SNOMED Code Problem Essential hypertension I10 Active 23985972 Problem Gastroesophageal reflux disease, esophagitis presence not specified K21.9 Active 132845553 Problem Syncope, unspecified syncope type R55 Active 880398336 Problem Ventricular tachycardia, non-sustained I47.2 Active 957107730 ALLERGIES No Information ENCOUNTERS Encounter Location Date Diagnosis [facility] [address] [id number] [place] [address] Nov Strain of lumbar paraspinous muscle, initial encounter S39.012A and History of ventricular tachycardia Z86.79 [facility]PITALM[facility] ImagingLEI [address] [id number] [place] [address] Nov Essential hypertension I10 and Ventricular tachycardia, non-sustained I47.2 [facility]ITALM[facility] ImagingLEI [address] [id number] [place] [address] August [facility]ITALMaui ImagingLEITODD [place] [address] [id number] [place] [address] August Essential hypertension I10 ; Dizziness R42 ; Abnormal Holter monitor finding R94.31 and Gastroesophageal reflux disease, esophagitis presence not specified K21.9 [facility]ITALM[facility] ImagingLEI [address] [id number] [place] [address] August Dizziness R42 [facility]ERSafaricrossONS [address] [id number] [place] [address] August [facility]ITALM[facility] ImagingLEI [address] [id number] [place] [address] August Dizziness R42 [facility]ENTERAWCC [facility] [address] [id number] [place] [address] May Exposure to influenza Z20.828 [facility] [place] [address] [id number] [place] [address] Oct Angioedema, initial encounter T78.3XXA IMMUNIZATIONS No Known Immunizations SOCIAL HISTORY Never Assessed REASON FOR VISIT requesting return call PLAN OF CARE VITAL SIGNS MEDICATIONS No Known Medications RESULTS No Results PROCEDURES No Known procedures INSTRUCTIONS MEDICATIONS ADMINISTERED No Known Medications MEDICAL (GENERAL) HISTORY Type Description Date Medical History Arthritis Surgical History Lt knee surgery Surgical History hernia repair X 2
[2018-02-26 19:37] LABS: BASOPHILS % (AUTO) 0 % (0-10); EOSINOPHILS # (AUTO) 0.2 10^3/uL (0.0-0.3); EOSINOPHILS % (AUTO) 3 % (0-10); HEMATOCRIT 46 % (40-54); HEMOGLOBIN 16.7 G/DL (13.3-17.7); LYMPHOCYTES # (AUTO) 2.4 X 10^3 (1.0-4.0); LYMPHOCYTES % (AUTO) 28 % (12-44); MEAN CORPUSCULAR HEMOGLOBIN 32 PG (25-34); MEAN CORPUSCULAR HGB CONC 36 G/DL (32-36); MEAN CORPUSCULAR VOLUME 90 FL (80-99); MEAN PLATELET VOLUME 10.8 FL (7.4-10.4); MONOCYTES # (AUTO) 0.8 X 10^3 (0.0-1.0); MONOCYTES % (AUTO) 9 % (0-12); NEUTROPHILS # (AUTO) 5.3 X 10^3 (1.8-7.8); NEUTROPHILS % (AUTO) 60 % (42-75); PLATELET COUNT 184 10^3/uL (130-400); RED BLOOD COUNT 5.16 10^6/uL (4.35-5.85); RED CELL DISTRIBUTION WIDTH 13.2 % (10.0-14.5); WHITE BLOOD COUNT 8.8 10^3/uL (4.3-11.0)
--- NOTE | 2018-02-26 19:49 | Diagnostic Imaging Report ---
INDICATION: Dizziness, blurred vision, syncopal episode today. Patient has started new heart medications and believes may have a reaction to them. COMPARISON STUDY: Chest from September 17. FINDINGS: A frontal view of the chest demonstrates the lungs to be clear. The heart, mediastinum and pulmonary vascularity are normal. No pleural effusion or pneumothorax is present. cafeteria monitor device is in place. IMPRESSION: Normal chest. Dictated by: Dictated on workstation # [id number]
[2018-02-26 19:50] LABS: PROTHROMBIN TIME PATIENT 13.4 SEC (12.2-14.7)
--- NOTE | 2018-02-26 19:50 | Diagnostic Imaging Report ---
INDICATION: Syncopal episode today, dizziness, blurred vision. Recently started new heart medication. FINDINGS: Noncontrast CT scan of the head demonstrates no mass effect, midline shift, hemorrhage or extra-axial fluid collections. The ellis-white matter differentiation is normal. The ventricles, cortical sulci and basilar cisterns are normal. The osseous structures appear normal. IMPRESSION: Normal noncontrast CT scan of the head. Dictated by: Dictated on workstation # [id number]
[2018-02-26 19:57] LABS: ALANINE AMINOTRANSFERASE 50 U/L (0-55); ALBUMIN 4.3 GM/DL (3.2-4.5); ALKALINE PHOSPHATASE 82 U/L (40-136); BILIRUBIN,TOTAL 0.3 MG/DL (0.1-1.0); BUN/CREATININE RATIO 17; CALCIUM 9.5 MG/DL (8.5-10.1); CARBON DIOXIDE 19 MMOL/L (21-32); CHLORIDE 106 MMOL/L (98-107); CREATININE SERUM 1.16 MG/DL (0.60-1.30); GFR ESTIMATED > 60; GLUCOSE 120 MG/DL (70-105); POTASSIUM 4.1 MMOL/L (3.6-5.0); SODIUM 139 MMOL/L (135-145)
--- NOTE | 2018-02-26 20:07 | ED General ---
General Chief Complaint: Cardiac/General Problems Stated Complaint: DIZZINESS Source of Information: Patient History of Present Illness Date Seen by Provider: Feb 26, 2018 Time Seen by Provider: 19:20 Initial Comments PT ARRIVES VIA POV C/O "DIZZY SPELLS" C/O BLURRY VISION THINKS SYMPTOMS HAVE BEEN GOING ON FOR 2 WEEKS OR MORE, BUT NOT EXACTLY SURE WHEN THEY STARTED STATES SYMPTOMS COME AND GO, AND ARE NOT PRESENT NOW STATES "I JUST WANT TO SLEEP--I CAN'T SLEEP AT NIGHT" STATES "I'M UP ALL NIGHT DRINKING COFFEE BECAUSE I CAN'T SLEEP" STATES DIZZINESS IS MOSTLY ON STANDING AND WALKING--STATES WHEN HE STANDS UP IT FEELS LIKE HE IS GOING TO FALL, DOES NOT DESCRIBE A SPINNING SENSATION, OR FEELING LIKE HE IS GOING TO PASS OUT, --STATES "IT'S LIKE I'M JUST WEAK" DENIES CHEST PAIN OR SHORTNESS OF BREATH, BUT THEN STATES "WHEN I LAID DOWN I GOT TO BREATHING HARD AND MY CHEST FELT LIKE SOMEBODY LEFT THE AIR OUT OF A BALLOON" --OCCURRED ONE TIME ONLY, YESTERDAY, AND LASTED FOR 5 MINUTES--HAS NOT HAD IT BEFORE OR SINCE. DENIES NAUSEA, "I GET A SICK FEELING IN MY CHEST" STATES "I CAN'T DESCRIBE IT" "LIKE IT'S NAUSEA IN MY CHEST, BUT I DON'T FEEL LIKE I'M GONNA THROW UP" NO PALPITATIONS NO SWEATS NO SWELLING IN LEGS/ FEET OR PAIN IN CALVES DENIES ANY SYMPTOMS NOW. DENIES ANY PAIN ANYWHERE DENIES SHORTNESS OF BREATH ( BUT WAS NOTED TO BE SHORT OF BREATH ON AMBULATION TO ER ROOM ON ARRIVAL) DENIES PALPITATIONS NOW DENIES BLURRY VISION NOW. DENIES HEADACHE DENIES PARESTHESIAS OR MOTOR DEFICITS. PT HAD SYNCOPAL EPISODE IN AUGUST OR SEPTEMBER, AND WAS PLACED ON A HOLTER MONITOR, WHICH SHOWED RUNS OF V-TACH, SO LOOP RECORDER WAS PLACED IN OCTOBER PT IS ON AMIODARONE AND METOPROLOL, AND ASPIRIN--PT WAS DUE TO TAKE ALL MEDICATIONS AT 1900 [facility] DR. MOSELEY Allergies and Home Medications Allergies Uncoded Allergies: CONTRAST (Allergy, Unknown, 09/17/17) Home Medications Amiodarone HCl 200 Mg Tablet, 200 MG PO BID Prescribed by: MARIE MOSELEY on 09/17/17 1115 Aspirin 81 Mg Tablet.dr, 81 MG PO DAILY, (Reported) Cetirizine HCl 10 Mg Tablet, 10 MG PO DAILY, (Reported) Metoprolol Succinate 25 Mg Tab.er.24h, 25 MG PO DAILY, (Reported) Naproxen Sodium 220 Mg Tablet, 440 MG PO BID, (Reported) Patient Home Medication List Home Medication List Reviewed: Yes Review of Systems Review of Systems Constitutional: see HPI, dizziness EENTM: see HPI, blurred vision Respiratory: see HPI Cardiovascular: see HPI Gastrointestinal: see HPI Genitourinary: no symptoms reported Musculoskeletal: no symptoms reported Skin: no symptoms reported Psychiatric/Neurological: No Symptoms Reported; Denies Headache, Denies Numbness, Denies Paresthesia, Denies Seizure, Denies Tingling, Denies Tremors, Denies Weakness Hematologic/Lymphatic: No Symptoms Reported Immunological/Allergic: no symptoms reported Past Hloucrq-Ifjdzq-Drsold Hx Patient Social History Alcohol Use: Denies Use Recreational Drug Use: No Smoking Status: Former Smoker Type Used: Cigarettes Former Smoker, Quit: Sep 17, 2012 2nd Hand Smoke Exposure: No Recent Foreign Travel: No Contact w/Someone Who Travel: No Physical Abuse: No Sexual Abuse: No Mistreated: No Fear: No Past Medical History Surgeries: Yes (LEFT KNEE, LOOP RECORDER IMPLANT; CARDIAC CATH X2 --NO INTERVENTION; LEFT INGUINAL HERNIA REPAIR) Abdominal, Cardiac, Orthopedic Respiratory: No Cardiac: Yes (NON-SUSTAINED V-TACH; STATES HE HAD AN CO IN 1996--CARDIAC CATH WITH NO INTERVENTION; CARDIAC CATH 09/17/2017--NO INTERVENTION, MILD DISEASE. CAROTID ULTRASOUND NORMAL PER PT ,CARDIAC MRI AND ECHOCARDIOGRAM NORMAL PER OLD RECORDS) Coronary Artery Disease, Heart Attack, Hypertension, Irregular Heartbeat, Palpitations, Syncope Neurological: No Gastrointestinal: Yes (LEFT INGUINAL HERNIA REPAIR) Abdominal Hernia Musculoskeletal: Yes (KNEE SURGERY) Arthritis Endocrine: No HEENT: No Cancer: No Psychosocial: No Blood Disorders: No Physical Exam Vital Signs Vital Signs - First Documented 02/26/18 19:10 Temp 97.8 Pulse 86 Resp 18 B/P (MAP) 186/113 (137) Pulse Ox 95 O2 Delivery Room Air Capillary Refill : Less Than 3 Seconds Height, Weight, BMI Height: 5'4.00" Weight: 203lbs. 0.0oz. 92.664752ju; 34.8 BMI Method: General Appearance: No Apparent Distress, WD/WN, Other (TALKS AT LENGTH WITHOUT DIFFICULTY) HEENT: PERRL/EOMI, TMs Normal, Normal ENT Inspection, Pharynx Normal Neck: Full Range of Motion, Normal Inspection, Non Tender, Supple; No Carotid Bruit, No JVD Respiratory: Chest Non Tender, Normal Breath Sounds, No Accessory Muscle Use, No Respiratory Distress Cardiovascular: Regular Rate, Rhythm, No Edema, No Gallop, No JVD, No Murmur, Normal Peripheral Pulses Gastrointestinal: Normal Bowel Sounds, No Organomegaly, No Pulsatile Mass, Non Tender, Soft Back: Normal Inspection, No CVA Tenderness, No Vertebral Tenderness Extremity: Normal Capillary Refill, Normal Inspection, Normal Range of Motion, Non Tender, No Calf Tenderness, No Pedal Edema Neurologic/Psychiatric: Alert, Oriented x3, No Motor/Sensory Deficits, Normal Mood/Affect, weave defect charting clerk II-XII Norm as Tested; No Abnormal Cerebellar Tests Skin: Normal Color, Warm/Dry; No Rash Progress/Results/Core Measures Suspected Sepsis SIRS Temperature: Pulse: Respiratory Rate: Laboratory Tests 02/26/18 19:30: White Blood Count 8.8 Blood Pressure / Mean: Laboratory Tests 02/26/18 19:30: Creatinine 1.16, INR Comment 1.0, Platelet Count 184, Total Bilirubin 0.3 Results/Orders Lab Results Laboratory Tests Test 02/26/18 19:30 Range/Units White Blood Count 8.8 4.3-11.0 10^3/uL Red Blood Count 5.16 4.35-5.85 10^6/uL Hemoglobin 16.7 13.3-17.7 G/DL Hematocrit 46 40-54 % Mean Corpuscular Volume 90 80-99 FL Mean Corpuscular Hemoglobin 32 25-34 PG Mean Corpuscular Hemoglobin Concent 36 32-36 G/DL Red Cell Distribution Width 13.2 10.0-14.5 % Platelet Count 184 130-400 10^3/uL Mean Platelet Volume 10.8 H 7.4-10.4 FL Neutrophils (%) (Auto) 60 42-75 % Lymphocytes (%) (Auto) 28 12-44 % Monocytes (%) (Auto) 9 0-12 % Eosinophils (%) (Auto) 3 0-10 % Basophils (%) (Auto) 0 0-10 % Neutrophils # (Auto) 5.3 1.8-7.8 X 10^3 Lymphocytes # (Auto) 2.4 1.0-4.0 X 10^3 Monocytes # (Auto) 0.8 0.0-1.0 X 10^3 Eosinophils # (Auto) 0.2 0.0-0.3 10^3/uL Basophils # (Auto) 0.0 0.0-0.1 10^3/uL Prothrombin Time 13.4 12.2-14.7 SEC INR Comment 1.0 0.8-1.4 Activated Partial Thromboplast Time 30 24-35 SEC Sodium Level 139 135-145 MMOL/L Potassium Level 4.1 3.6-5.0 MMOL/L Chloride Level 106 98-107 MMOL/L Carbon Dioxide Level 19 L 21-32 MMOL/L Anion Gap 14 5-14 MMOL/L Blood Urea Nitrogen 20 H 7-18 MG/DL Creatinine 1.16 0.60-1.30 MG/DL Estimat Glomerular Filtration Rate > 60 BUN/Creatinine Ratio 17 Glucose Level 120 H 70-105 MG/DL Calcium Level 9.5 8.5-10.1 MG/DL Corrected Calcium 9.3 8.5-10.1 MG/DL Magnesium Level 2.0 1.8-2.4 MG/DL Total Bilirubin 0.3 0.1-1.0 MG/DL Aspartate Amino Transf (AST/SGOT) 35 H 5-34 U/L Alanine Aminotransferase (ALT/SGPT) 50 0-55 U/L Alkaline Phosphatase 82 40-136 U/L Troponin I < 0.30 <0.30 NG/ML B-Type Natriuretic Peptide 14.6 <100.0 PG/ML Total Protein 7.0 6.4-8.2 GM/DL Albumin 4.3 3.2-4.5 GM/DL My Orders Orders - MILVIAWAYLON K DO Saline Lock/Iv-Start (02/26/18:) Ekg Tracing (02/26/18) Monitor-Rhythm Ecg Trace Only (02/26/18) Ct Head Wo-R/O Stroke (02/26/18) BNP (02/26/18:) Cbc With Automated Diff (02/26/18:) Comprehensive Metabolic Panel (02/26/18) Magnesium (11/10/18 19:22) Protime With Inr (02/26/18 19:22) Partial Thromboplastin Time (02/26/18 19:22) Troponin I (02/26/18 19:22) Chest 1 View, Ap/Pa Only (02/26/18 19:22) Ct Angio Chest W (02/26/18 20:04) Ct Angio Head/Neck (02/26/18 20:04) Iohexol Injection (Omnipaque 350 Mg/Ml 1 (02/26/18 20:15) Contrast Received (Contrast Received) (02/26/18 20:15) Sodium Chloride Flush (Catheter Flush Sy (02/26/18 20:15) Ns (Ivpb) (Sodium Chloride 0.9%) (02/26/18 20:15) 1/2 Ns Iv Solution (0.45% Sodium Chlorid (02/26/18 20:15) Medications Given in ED Current Medications Medications Dose Ordered Sig/Abelardo Route Start Time Stop Time Status Last Admin Dose Admin Iohexol 150 ml ONCE ONCE IV 02/26/18 20:15 02/26/18 20:16 DC 02/26/18 20:35 125 ML Sodium Chloride 10 ml NEEDED PRN IV 02/26/18 20:15 02/26/18 20:35 10 ML Sodium Chloride 250 ml ONCE ONCE IV 02/26/18 20:15 02/26/18 20:16 DC 02/26/18 20:35 80 ML Vital Signs/I&O 02/26/18 19:10 Temp 97.8 Pulse 86 Resp 18 B/P (MAP) 186/113 (137) Pulse Ox 95 O2 Delivery Room Air Capillary Refill : Less Than 3 Seconds Progress Note : Progress Note NO SYMPTOMS DURING ENTIRE ER STAY ECG Initial ECG Impression Date: Feb 26, 2018 Initial ECG Impression Time: 19:18 Initial ECG Rate: 79 Initial ECG Rhythm: Normal Sinus Diagnostic Imaging Comments CXR--NO ACUTE PROCESS CT HEAD--NO ACUTE PROCESS PER RADIOLOGIST REPORTS @ 2002 CT ANGIOGRAM HEAD/NECK--NO ACUTE PROCESS OR STENOSIS OR THROMBUS CT ANGIOGRAM OF CHEST--NO ACUTE PROCESS, NO PE PER RADIOLOGIST REPORTS @ 2123 Reviewed: Reviewed by Me Departure Impression Primary Impression: INTERMITTENT DIZZINESS Additional Impressions: INTERMITTENT BLURRY VISION Hx of ventricular tachycardia HTN (hypertension) Disposition: 01 HOME, SELF-CARE Condition: Stable Departure-Patient Inst. Referrals: [facility] (PCP) Primary Care Physician SONIA VARGAS APRN (Family) Primary Care Physician Sandy VENEGAS MD, BASHAR J MD Patient Instructions: Dizziness, Nonvertigo, (DC), High Blood Pressure (DC) Add. Discharge Instructions: CONTINUE YOUR MEDICATIONS PRESCRIBED AVOID CAFFEINE TRY TO GO TO SLEEP AT THE SAME TIME EVERY NIGHT FOLLOW UP WITH DR. MOSELEY AND / OR DR. VENEGAS THIS WEEK FOR FURTHER CARE RETURN TO ER IF WORSE All discharge instructions reviewed with patient and/or family. Voiced understanding. WAYLON STEEL DO Feb 26, 2018 20:07
[2018-02-26] MEDS ORDERED: CATHETER FLUSH 10 ML SYR IV PRN (20:15)
[2018-02-26] MEDS ORDERED: RECEIVED CONTRAST (Hold Metformin) IV SCH (20:15)
[2018-02-26] MEDS ORDERED: NS 250 ML (IVPB) BAG IV ONE (20:15)
[2018-02-26] MEDS ORDERED: IOHEXOL 350 MG/ML 150 ML (OMNIPAQUE 350) VIAL IV ONE (20:15)
[2018-02-26] MEDS ORDERED: 1/2 NS IV SOLUTION 1,000 ML IV SCH (20:15)
--- NOTE | 2018-02-26 21:02 | Diagnostic Imaging Report ---
PROCEDURE: CT angiography of the chest with contrast. TECHNIQUE: Multiple contiguous axial images were obtained through the chest after uneventful bolus administration of intravenous contrast. 2D reconstructed CTA MIP acquisitions were also performed. INDICATION: Dizziness, blurred vision, syncopal episode today, started new heart medication and may be having reaction. FINDINGS: The CTA of the chest demonstrates no pulmonary emboli. No aortic dissection or aneurysm is present. There is normal takeoff of the great vessels from the aortic arch. The heart size is normal. There are no pleural or pericardial effusions. No abnormal adenopathy is present. Visualized portions of the abdomen are normal. The lungs are clear. IMPRESSION: Normal CTA of the chest. Dictated by: Dictated on workstation # [id number]
--- NOTE | 2018-02-26 21:09 | Diagnostic Imaging Report ---
PROCEDURE: CT angiography of the head and CT angiography of the neck with and without contrast. TECHNIQUE: Contiguous noncontrast images were obtained from the skull base through the vertex. After intravenous contrast administration, helical CT angiography of the neck was performed. Source data was reformatted into multiple MIP projections. Delayed post contrast acquisition was also obtained. INDICATION: Dizziness, blurred vision, syncopal episode, started new heart Medication. FINDINGS: At the base of the neck there is some artifact and the vessels cannot be well imaged. The carotid bifurcations appear normal. The internal carotid arteries appear normal. No vertebral artery dissection or stenosis is identified. The vertebral arteries are a little limited due to venous contamination. No hematomas are present. The cervical spine demonstrates mild degenerative changes. The use CTA of the head demonstrates no stenosis. No aneurysms are present. The brain parenchyma appears normal. IMPRESSION: 1. Normal vascularity of the head and neck. The base of the neck is not well imaged due to artifact from the shoulders. 2. Mild degenerative changes present in the cervical spine. Dictated by: Dictated on workstation # [id number]
[2018-02-26 22:17] VITALS: BP 144/90
== END 2018-02-26 22:17 | disposition home or self-care (01) ==
LOC: EDUNIT# 19:06 → ER 19:07
DX: R42 Dizziness and giddiness (principal); I10 Essential (primary) hypertension; H53.8 Other visual disturbances; I25.2 Old myocardial infarction; I25.10 Atherosclerotic heart disease of native coronary artery without angina pectoris; Z87.19 Personal history of other diseases of the digestive system; Z79.82 Long term (current) use of aspirin; Z91.041 Radiographic dye allergy status; Z87.891 Personal history of nicotine dependence; Z86.79 Personal history of other diseases of the circulatory system; Z98.890 Other specified postprocedural states
CPT/HCPCS: 36415; 70450; 70496; 70498; 71045; 71275; 80053; 83735; 83880; 84484; 85025; 85610; 85730; 93041

== ENCOUNTER 2018-03-24 09:28 | Day surgery (SDC) | payer MEDICARE ==
[~2018-03-24] VITALS: Ht 162.6 cm; Wt 95.3 kg
[2018-03-24] VITALS (10 sets, daily range): BP systolic 105–148; BP diastolic 65–91
[2018-03-24] MEDS ORDERED: NS IV 1000 ML 1,000 ML IV SCH ×2 (09:40→14:59)
[2018-03-24] MEDS ORDERED: ISOPROTERENOL 0.2 MG/100 ML D5W IV ONE ×2 (09:45→11:30)
[2018-03-24] MEDS ORDERED: LIDOCAINE 1% INJ 20 ML 20 ML VIAL ONE (09:46)
[2018-03-24] MEDS ORDERED: NS IV 1000 ML 1,000 ML ONE (09:46)
[2018-03-24] MEDS ORDERED: HEParin (CATH LAB) 2,000 ML IV ONE (09:46)
[2018-03-24 10:14] LABS: HEMOGLOBIN 17.1 G/DL (13.3-17.7); MEAN PLATELET VOLUME 10.9 FL (7.4-10.4); RED BLOOD COUNT 5.33 10^6/uL (4.35-5.85); RED CELL DISTRIBUTION WIDTH 13.6 % (10.0-14.5); WHITE BLOOD COUNT 9.2 10^3/uL (4.3-11.0)
[2018-03-24 10:33] LABS: ALANINE AMINOTRANSFERASE 40 U/L (0-55); ALBUMIN 4.4 GM/DL (3.2-4.5); ALKALINE PHOSPHATASE 76 U/L (40-136); BILIRUBIN,TOTAL 0.5 MG/DL (0.1-1.0); BUN/CREATININE RATIO 15; CARBON DIOXIDE 23 MMOL/L (21-32); CHLORIDE 107 MMOL/L (98-107); CREATININE SERUM 1.08 MG/DL (0.60-1.30); GFR ESTIMATED > 60; GLUCOSE 92 MG/DL (70-105); POTASSIUM 4.8 MMOL/L (3.6-5.0); SODIUM 139 MMOL/L (135-145); TOTAL PROTEIN 7.3 GM/DL (6.4-8.2)
[2018-03-24 10:38] LABS: INR 1.1 (0.8-1.4); PROTHROMBIN TIME PATIENT 13.9 SEC (12.2-14.7)
[2018-03-24] MEDS ORDERED: AMIO200T4 PO (10:41)
[2018-03-24] MEDS ORDERED: LISI-556 PO (10:41)
[2018-03-24] MEDS ORDERED: FLU QUADRIvalent (5+ YOA) 2018-2019 (AFLURIA) 0.5 ML IM ONE (10:45)
[2018-03-24] MEDS ORDERED: fentaNYL INJECTION 100 MCG/2 ML AMP ONE ×2 (12:55→14:54)
[2018-03-24] MEDS ORDERED: MIDAZOLAM 5 MG/5 ML (VERSED) VIAL ONE ×2 (12:55→14:36)
--- OUTSIDE RECORDS SUMMARY | 2018-03-24 13:53 | XMS REPORT ---
Author Author SONIA VARGAS [facility] Address [address] [place] [address] Care Team Providers Care Zinc Miner Name Role Phone SONIA VARGAS Unavailable PROBLEMS Type Condition ICD9-CM Code KBC73-DD Code Onset Dates Condition Status SNOMED Code Problem Essential hypertension I10 Active 10378236 Problem Gastroesophageal reflux disease, esophagitis presence not specified K21.9 Active 195547941 Problem Syncope, unspecified syncope type R55 Active 608178868 Problem Ventricular tachycardia, non-sustained I47.2 Active [id number] ALLERGIES No Information ENCOUNTERS Encounter Location Date Diagnosis [facility] [address] [facility] [facility] [id number] [place] [address] Feb, [facility] [address] [id number] [place] [address] Nov Strain of lumbar paraspinous muscle, initial encounter S39.012A and History of ventricular tachycardia Z86.79 [facility] SUKUMAR [id number] [place] [address] Nov Essential hypertension I10 and Ventricular tachycardia, non-sustained I47.2 [facility] COMMERCLance [id number] [place] [address] August [facility] COMMERCLance [id number] [place] [address] August Essential hypertension I10 ; Dizziness R42 ; Abnormal Holter monitor finding R94.31 and Gastroesophageal reflux disease, esophagitis presence not specified K21.9 [facility] [address] [id number] [place] [address] August Dizziness R42 [facility] SUKUMAR [id number] [place] [address] August [facility] [id number] [place] [address] August Dizziness R42 [facility] [address] [id number] [place] [address] May Exposure to influenza Z20.828 [facility] [address] [id number] [place] [address] Oct Angioedema, initial encounter T78.3XXA IMMUNIZATIONS No Known Immunizations SOCIAL HISTORY Never Assessed REASON FOR VISIT ED visit PLAN OF CARE VITAL SIGNS MEDICATIONS Unknown Medications RESULTS No Results PROCEDURES No Known procedures INSTRUCTIONS MEDICATIONS ADMINISTERED No Known Medications MEDICAL (GENERAL) HISTORY Type Description Date Medical History Arthritis Medical History 02/26/18 - CT head: normal Medical History 02/26/18- CT head/neck: no acute process,stenosis, or thrombus Medical History 02/26/18-CT chest:no acute process or PE Surgical History Lt knee surgery Surgical History hernia repair X 2
--- OUTSIDE RECORDS SUMMARY | 2018-03-24 13:53 | XMS REPORT | Continuity of Care Document ---
Author Author [facility] Organization [facility] Address Unknown Phone Unavailable Allergies Active Description Code Type Severity Reaction Onset Reported/Identified Relationship to Patient Clinical Status Yes No Known Drug Allergies [id number] N/A N/A Yes CONTRAST CONTRAST Unknown N/A [...] R55 SYNCOPE AND COLLAPSE 11/25/2017 Ot Z79.82 HALFWAY ( CURRENT) USE OF ASPIRIN 11/25/2017 Ot [...] VENEGAS MD Ot I47.2 VENTRICULAR TACHYCARDIA 01/05/2018 RUBI OREILLY, M HUSEYIN Ot R55 SYNCOPE AND COLLAPSE 03/01/2018 WAYLON STEEL DO Ot H53.8 OTHER VISUAL DISTURBANCES 03/01/2018 WAYLON STEEL DO Ot I10 ESSENTIAL (PRIMARY) HYPERTENSION 03/01/2018 WAYLON STEEL DO Ot I25.10 ATHSCL HEART DISEASE OF [place] CORONARY 03/01/2018 WAYLON STEEL DO Ot I25.2 OLD MYOCARDIAL INFARCTION 03/01/2018 MILVIA WAYLON GALARZA Ot R42 DIZZINESS AND GIDDINESS 03/01/2018 MILVIA WAYLON GALARZA Ot 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 Results Test [...] - 11/18/17 11:11 TSH 4.17 mIU/L 0.40-4.50 Complete blood count (CBC) with automated white blood cell (WBC) differential - 02/26/18 19:30 Blood leukocytes automated count (number/volume) 8.8 10*3/uL 4.3-11.0 Blood erythrocytes automated count (number/volume) 5.16 10*6/uL 4.35-5.85 Venous blood hemoglobin measurement (mass/volume) 16.7 g/dL 13.3-17.7 Blood hematocrit (volume fraction) 46 % 40-54 Automated erythrocyte mean corpuscular volume 90 [foz_us] 80-99 Automated erythrocyte mean corpuscular hemoglobin (mass per erythrocyte) 32 pg 25-34 Automated erythrocyte mean corpuscular hemoglobin concentration measurement ( mass/volume) 36 g/dL 32-36 Automated erythrocyte distribution width ratio 13.2 % 10.0-14.5 Automated blood platelet count (count/volume) 184 10*3/uL 130-400 Automated blood platelet mean volume measurement 10.8 [foz_us] 7.4-10.4 Automated blood neutrophils/100 leukocytes 60 % 42-75 Automated blood lymphocytes/100 leukocytes 28 % 12-44 Blood monocytes/100 leukocytes 9 % 0-12 Automated blood eosinophils/100 leukocytes 3 % 0-10 Automated blood basophils/100 leukocytes 0 % 0-10 Blood neutrophils automated count (number/volume) 5.3 10*3 1.8-7.8 Blood lymphocytes automated count (number/volume) 2.4 10*3 1.0-4.0 Blood monocytes automated count (number/volume) 0.8 10*3 0.0-1.0 Automated eosinophil count 0.2 10*3/uL 0.0-0.3 Automated blood basophil count (count/volume) 0.0 10*3/uL 0.0-0.1 PT panel in platelet poor plasma by coagulation assay - 02/26/18 19:30 Prothrombin time (PT) in platelet poor plasma by coagulation assay 13.4 s 12.2-14.7 INR in platelet poor plasma or blood by coagulation assay 1.0 0.8-1.4 Activated partial thromboplastin time (aPTT) in platelet poor plasma bycoagulation assay - 02/26/18 19:30 Activated partial thromboplastin time (aPTT) in platelet poor plasma bycoagulation assay 30 s 24-35 Comprehensive metabolic panel - 02/26/18 19:30 Serum or plasma sodium measurement (moles/volume) 139 mmol/L 135-145 Serum or plasma potassium measurement (moles/volume) 4.1 mmol/L 3.6-5.0 Serum or plasma chloride measurement (moles/volume) 106 mmol/L 98-107 Carbon dioxide 19 mmol/L 21-32 Serum or plasma anion gap determination (moles/volume) 14 mmol/L 5-14 Serum or plasma urea nitrogen measurement (mass/volume) 20 mg/dL 7-18 Serum or plasma creatinine measurement (mass/volume) 1.16 mg/dL 0.60-1.30 Serum or plasma urea nitrogen/creatinine mass ratio 17 NRG Serum or plasma creatinine measurement with calculation of estimated glomerular filtration rate > NRG Serum or plasma glucose measurement (mass/volume) 120 mg/dL 70-105 Serum or plasma calcium measurement (mass/volume) 9.5 mg/dL 8.5-10.1 Serum or plasma total bilirubin measurement (mass/volume) 0.3 mg/dL 0.1-1.0 Serum or plasma alkaline phosphatase measurement (enzymatic activity/volume) 82 U/L 40-136 Serum or plasma aspartate aminotransferase measurement (enzymatic activity/ volume) 35 U/L 5-34 Serum or plasma alanine aminotransferase measurement (enzymatic activity/volume ) 50 U/L 0-55 Serum or plasma protein measurement (mass/volume) 7.0 g/dL 6.4-8.2 Serum or plasma albumin measurement (mass/volume) 4.3 g/dL 3.2-4.5 CALCIUM CORRECTED 9.3 mg/dL 8.5-10.1 Magnesium - 02/26/18 19:30 Magnesium 2.0 mg/dL 1.8-2.4 Serum or plasma lithium measurement (moles/volume) - 02/26/18 19:30 BNP level 14.6 pg/mL <100.0 Serum or plasma troponin i.cardiac measurement (mass/volume) - 02/26/18 19:30 Serum or plasma troponin i.cardiac measurement (mass/volume) < ng/ mL <0.30 Automated blood complete blood count (hemogram) panel - 03/24/18 10:07 Blood leukocytes automated count (number/volume) 9.2 10*3/uL 4.3-11.0 Blood erythrocytes automated count (number/volume) 5.33 10*6/uL 4.35-5.85 Venous blood hemoglobin measurement (mass/volume) 17.1 g/dL 13.3-17.7 Blood hematocrit (volume fraction) 49 % 40-54 Automated erythrocyte mean corpuscular volume 91 [foz_us] 80-99 Automated erythrocyte mean corpuscular hemoglobin (mass per erythrocyte) 32 pg 25-34 Automated erythrocyte mean corpuscular hemoglobin concentration measurement ( mass/volume) 35 g/dL 32-36 Automated erythrocyte distribution width ratio 13.6 % 10.0-14.5 Automated blood platelet count (count/volume) 229 10*3/uL 130-400 Automated blood platelet mean volume measurement 10.9 [foz_us] 7.4-10.4 Comprehensive metabolic panel - 03/24/18 10:07 Serum or plasma sodium measurement (moles/volume) 139 mmol/L 135-145 Serum or plasma potassium measurement (moles/volume) 4.8 mmol/L 3.6-5.0 Serum or plasma chloride measurement (moles/volume) 107 mmol/L 98-107 Carbon dioxide 23 mmol/L 21-32 Serum or plasma anion gap determination (moles/volume) 9 mmol/L 5-14 Serum or plasma urea nitrogen measurement (mass/volume) 16 mg/dL 7-18 Serum or plasma creatinine measurement (mass/volume) 1.08 mg/dL 0.60-1.30 Serum or plasma urea nitrogen/creatinine mass ratio 15 NRG Serum or plasma creatinine measurement with calculation of estimated glomerular filtration rate > NRG Serum or plasma glucose measurement (mass/volume) 92 mg/dL 70-105 Serum or plasma calcium measurement (mass/volume) 10.0 mg/dL 8.5-10.1 Serum or plasma total bilirubin measurement (mass/volume) 0.5 mg/dL 0.1-1.0 Serum or plasma alkaline phosphatase measurement (enzymatic activity/volume) 76 U/L 40-136 Serum or plasma aspartate aminotransferase measurement (enzymatic activity/ volume) 34 U/L 5-34 Serum or plasma alanine aminotransferase measurement (enzymatic activity/volume ) 40 U/L 0-55 Serum or plasma protein measurement (mass/volume) 7.3 g/dL 6.4-8.2 Serum or plasma albumin measurement (mass/volume) 4.4 g/dL 3.2-4.5 CALCIUM CORRECTED 9.7 mg/dL 8.5-10.1 PT panel in platelet poor plasma by coagulation assay - 03/24/18 10:07 Prothrombin time (PT) in platelet poor plasma by coagulation assay 13.9 s 12.2-14.7 INR in platelet poor plasma or blood by coagulation assay 1.1 0.8-1.4 Activated partial thromboplastin time (aPTT) in platelet poor plasma bycoagulation assay - 03/24/18 10:07 Activated partial thromboplastin time (aPTT) in platelet poor plasma bycoagulation assay 33 s 24-35 Encounters ACCT No. Visit Date/Time Discharge Status Pt. Type Provider Facility Loc./Unit Complaint [id number] 03/20/2014 12:06:48 03/20/2014 23:59:59 [facility] Outpatient Flavia Tapia [id number] 06/07/2013 10:40:09 06/07/2013 23:59:59 CLS Outpatient Duong Rico [id number] 05/17/2013 12:14:27 05/17/2013 23:59:59 [facility] Outpatient Duong Rico [id number] 05/16/2013 12:55:56 05/16/2013 23:59:59 CLS Outpatient Duong Rico [id number] 05/10/2013 11:59:47 05/10/2013 23:59:59 [facility] Outpatient Duong Rico [id number] 05/01/2013 12:35:03 05/01/2013 23:59:59 CLS Outpatient Duong Rico [id number] 11/18/2017 11:20:00 11/18/2017 23:59:59 CLS Outpatient SONIA VARGAS [id number] 11/18/2017 11:20:00 Document Registration [id number] 09/03/2017 15:20:00 Document Registration [id number] 02/26/2018 19:07:00 02/26/2018 22:17:00 DIS Outpatient WAYLON STEEL DO [facility] ER DIZZINESS [id number] 01/03/2018 14:28:00 01/03/2018 23:59:59 CLS Outpatient Sandy VENEGAS MD [facility] RT NEAR SYNCOPE,VENTRICULAR TACHYCARDIA [id number] 12/20/2017 09:00:00 12/20/2017 23:59:59 CLS Preadmit MARIE MOSELEY MD [facility] CARD SYNCOPE [id number] 10/14/2017 07:34:00 12/19/2017 00:01:00 DIS Outpatient MARIE MOSELEY MD [facility] CARD SYNCOPE [id number] 12/08/2017 11:30:00 12/08/2017 23:59:59 CLS Preadmit SONIA VARGAS SOUVENIR ASSEMBLER [facility] CARD DIZZINESS [id number] 09/08/2017 10:08:00 12/07/2017 00:01:00 DIS Outpatient SONIA VARGAS APRN [facility] CARD DIZZINESS [id number] 11/15/2017 10:49:00 11/15/2017 23:59:59 CLS Preadmit Sandy VENEGAS MD [facility] RT NEAR SYNCOPE,VENTRICULAR TACHYCARDIA [id number] 09/17/2017 07:28:00 09/17/2017 16:40:00 DIS Outpatient MARIE MOSELEY MD [facility] CATH VTACH,CP,SYNOPE, DIZZINESS,HTN [id number] 03/24/2018 09:28:00 ACT Outpatient Sandy VENEGAS MD [facility] CATH NSVT SYNCOPE [id number] 11/25/2017 08:03:00 Document Registration [id number] 09/06/2017 10:11:39 Document Registration
--- NOTE | 2018-03-24 14:59 | Cardiac Procedure Note-CS/ASA ---
Pre-Procedure Note Pre-Op Procedure Note H&P Reviewed The H&P was reviewed, patient examined and no changes noted. Date H&P Reviewed: Mar 24, 2018 Time H&P Reviewed: 13:00 Conscious Sedation Pre-Proced Time 13:00 ASA Score 3 For ASA 3 and 4: Consider anesthesia and medical clearance. Also, for patients with a history of failed moderate sedation consider anesthesia. Airway Lungs Heart ASA score ASA 1: a normal healthy patient ASA 2: a patient with a mild systemic disease (mid diabetes, controlled hypertension, obesity ASA 3: a patient with a severe systemic disease that limits activity (angina , COPD, prior Myocardial infarction) ASA 4: a patient with an incapacitating disease that is a constant threat to life (CHF, renal failure) ASA 5: a moribund patient not expected to survive 24 hrs. (ruptured aneurysm) ASA 6: a declared brain patient whose organs are being harvested. For emergent operations, add the letter E after the classification Mallampati Classification Grade 1 Sedation Plan Analgesia, Amnesia, Plan communicated to team members, Discussed options with patient/fam, Discussed risks with patient/fam The patient is an appropriate candidate to undergo the planned procedure, sedation, and anesthesia. The patient immediately re-assessed prior to indication. Sandy VENEGAS MD Mar 24, 2018 14:59
--- NOTE | 2018-03-24 14:59 | Electrophysiology Procedure ---
EP Procedure DATE OF SERVICE:03/24/18 COMPREHENSIVE EP STUDY REFERRING INSTRUCTIONAL TECHNOLOGY DIRECTOR: Kishore Pineda MD CARDIAC TECHNICAL ARTIST: Nelli Lock MD INDICATION: Nonsustained VT, Syncope PREOPERATIVE DIAGNOSES: Nonsustained ventricular tachycardia, Syncope POSTOPERATIVE DIAGNOSIS: Sustained ventricular tachycardia was not induced. HISTORY: This is a 62 year old male with history of NSVT and Syncope. The patient was scheduled for a comprehensive EP study with possible induction of ventricular tachycardia and possible ICD. PROCEDURE PERFORMED: 1. Comprehensive EP study with induction. 2. Fluoroscopy. 3. Drug infusion. COMPLICATION: None. ESTIMATED BLOOD LOSS: 10 mL. CONTRAST USED: None. FLUOROSCOPY TIME: 3.36 minutes FLUOROSCOPY DOSE: 43 milligrays. SPECIMENS: None. ANESTHESIA: Conscious sedation. ANTICOAGULATION: None. PROCEDURE IN DETAIL: After informed consent was taken, the patient was brought to the EP lab. The patient was draped and prepped in the usual sterile fashion. The patient presented to the EP lab in sinus rhythm. Access was gained in the right femoral vein with a 6-Bulgarian sheath, and two 5-Bulgarian sheaths. A high atrial catheter, His catheter and RV catheter was placed. A comprehensive EP study was done. We tried to induce ventricular tachycardia by programmed electrical stimulation from the RV apex and RVOT with an aggressive protocol at both cycle length of 600 milliseconds and 400 milliseconds. This was done with and without Isuprel infusion. However, we were not able to induce sustained ventricular tachycardia. The patient left the lab in sinus rhythm. The patient tolerated the procedure well and did not have any complication. Since ventricular tachycardia was not induced, ICD was not implanted. MEASUREMENTS: AH 64 milliseconds. HV 39 milliseconds. RI interval 166 milliseconds. QRS duration 75 milliseconds. QT interval 396 milliseconds. RR interval 907 milliseconds. AV Wenckebach 520 milliseconds. Retrograde Wenckebach 640 milliseconds. AVN ERP was 600/400ms. Atrial ERP was 600/320 milliseconds. Ventricular ERP was 700/540 milliseconds. No VA conduction at V pacing at 600ms. PLAN: The patient will be observed for 4 hours and will be discharged home later today with precise followup instructions. Sandy LOCK MD Mar 24, 2018 14:59
[2018-03-24] MEDS ORDERED: PATIENT MAY USE OWN MEDS, ALL PO SCH (15:00)
--- NOTE | 2018-03-24 15:13 | Discharge Inst-Post CATH ---
Discharge Inst-CATH Post Cardiac Cath D/C Inst Follow Up/Plan Dr Lock in 4 weeks. CARDIAC CATH DISCHARGE INSTRUCTIONS *Hold Metformin for 48 hours post heart cath. ACTIVITY * Go Home directly and rest. * Limit activity of the leg (or wrist if it was used) for 7 days including aerobics, swimming, jogging, bicycling, etc. * Restrict stair-climbing for 7 days if possible, if not, climb up with your non -cath leg, then bring together on the same step. * Avoid lifting, pushing, pulling or excessive movement of the affected extremity for 7 days. * Customary sexual activity may be resumed after 2 days-use caution not to use a position that strains or causes pain to the affected extremity. * No driving for 24 hours. * NO SMOKING. * Avoid straining for bowel movements for 7 days. * Gentle walking on level ground is allowed. * Returning to work will depend on the type of procedure and the results. Your doctor will discuss this with you. CALL YOUR DOCTOR FOR ANY OF THE FOLLOWING: *If bleeding from the puncture site occurs- Apply gentle pressure to site with clean cloth and call your doctor or EMS. * If a knot or lump forms under the skin, increases in size, or causes pain. * If bruising appears to be worsening or moving further down your leg instead of disappearing. * Temperature above 101 F. CARE OF YOUR GROIN INCISION; * Bruising or purple discoloration of the skin near the puncture site is common. * You may shower only, no bathtub bathing for 5 days. Be careful to avoid slipping as your leg may feel stiff. * If a closure device was used on your femoral artery, please see the attached guide regarding care of the device and your leg. * Leave the dressing on, until removed by office staff. CARE OF YOUR WRIST INCISION; * Bruising or purple discoloration of the skin near the puncture site is common. * You may shower. * DO NOT submerge wrist. * Leave dressing on, until removed by office staff.. Sandy LOCK MD Mar 24, 2018 15:13
--- NOTE | 2018-03-24 15:15 | Cardiology Discharge Summary ---
Diagnosis/Chief Complaint Date of Admission 03/24/2018 Date of Discharge 03/24/2018 Admission Diagnosis NSVT, Syncope Final/Discharge Diagnosis Non-inducible VT Chief Complaint/HPI Chief Complaint/HPI This is a 62 year old male with NSVT and Syncope. EP study with PES for VT was recommended. Discharge Summary Procedures EP study was negative for inducible sustained VT. Discharge Physical Examination Normal. Hospital Course Unremarkable Pending Labs Laboratory Tests 03/24/18 10:07: White Blood Count 9.2, Red Blood Count 5.33, Hemoglobin 17.1, Hematocrit 49, Mean Corpuscular Volume 91, Mean Corpuscular Hemoglobin 32, Mean Corpuscular Hemoglobin Concent 35, Red Cell Distribution Width 13.6, Platelet Count 229, Mean Platelet Volume 10.9, Prothrombin Time 13.9, INR Comment 1.1, Activated Partial Thromboplast Time 33, Sodium Level 139, Potassium Level 4.8, Chloride Level 107, Carbon Dioxide Level 23, Anion Gap 9, Blood Urea Nitrogen 16, Creatinine 1.08, Estimat Glomerular Filtration Rate > 60, BUN/Creatinine Ratio 15, Glucose Level 92, Calcium Level 10.0, Corrected Calcium 9.7, Total Bilirubin 0.5, Aspartate Amino Transf (AST/SGOT) 34, Alanine Aminotransferase ( ALT/SGPT) 40, Alkaline Phosphatase 76, Total Protein 7.3, Albumin 4.4 Discussion & Recommendations Discussion Discussed with family and patient. Follow up appt.: Dr Lock in four weeks Dicharge Diet: Regular Diet Activity as Tolerated: Yes Home Medications Reviewed patient Home Medication Reconciliation performed by pharmacy medication reconciliations hydraulic controls technician and/or nursing. Patients Allergies have been reviewed. Discharge Home Medications: Reviewed and agree with Discharge Medication list on patient's Discharge Instruction sheet Condition at discharge Stable Instructions to patient/family Dr Lock in 4 weeks. Sandy LOCK MD Mar 24, 2018 15:15
== END 2018-03-24 19:00 | disposition home or self-care (01) ==
LOC: CATH 09:28 → ICU 15:35 → CATH 19:00
PROVIDERS: ATTEND Internal Medicine Interventional Cardiology
DX: I47.2 Ventricular tachycardia (principal); R55 Syncope and collapse; Z79.899 Other long term (current) drug therapy; Z79.82 Long term (current) use of aspirin; Z87.891 Personal history of nicotine dependence; Z82.49 Family history of ischemic heart disease and other diseases of the circulatory system
CPT/HCPCS: 36415; 80053; 85027; 85610; 85730; 87081; 93005; 93620; 93623